=== PATIENT | female | born 1980 | race Caucasian/White ===

== ENCOUNTER 2017-05-26 18:41 | Emergency (ER) | payer MEDICAID ==
[~2017-05-26] VITALS: Ht 162.6 cm; Wt 92.5 kg
[2017-05-26 19:22] VITALS: Ht 162.6 cm; Wt 92.5 kg
[2017-05-26 20:11] VITALS: BP 125/88
== END 2017-05-26 20:11 | disposition home or self-care (01) ==
LOC: ED 18:41
DX: N39.0 Urinary tract infection, site not specified (principal)